=== PATIENT | male | born 1970 ===

== ENCOUNTER 2021-10-01 19:32 | Inpatient (IN) | payer SELFPAY ==
[2021-10-01] MEDS ORDERED: ASPIRIN 325 MG TAB PO ONE (19:39)
[2021-10-01] MEDS ORDERED: MORPHINE 4 MG/1 ML INJ IV ONE (19:58)
[2021-10-01] MEDS ORDERED: ONDANSETRON 4 MG/2 ML INJ IV ONE (19:58)
--- NOTE | 2021-10-01 19:58 | Emergency Department Report ---
ED General Adult HPI - General Chief complaint: Chest Pain Stated complaint: HARMAN Source: patient, certified court/medical interpreter Mode of arrival: Ambulatory Limitations: No Limitations - History of Present Illness Initial comments: The patient's brother acts as an certified court/medical interpreter for this encounter The patient complains of substernal chest pain that started 30 minutes prior to arrival. The patient is diaphoretic and vomiting actively on my evaluation. Patient states the chest pain is located in the middle of his chest and denies any radiation. Patient denies a history of hypertension, diabetes, or hyperlipidemia but the patient does not have a regular primary care physician. -: Sudden, minutes(s) (30) Location: chest Radiation: non-radiation Severity scale (0 -10): 10 Quality: sharp Consistency: constant Improves with: none Worsens with: none Associated Symptoms: denies other symptoms Treatments Prior to Arrival: none - Related Data Allergies Allergy/AdvReac Type Severity Reaction Status Date / Time No Known Allergies Allergy Verified 10/01/21 19:39 ED Review of Systems ROS: Stated complaint: HARMAN Other details as noted in HPI Constitutional: denies: chills, fever Eyes: denies: eye pain, eye discharge, vision change ENT: denies: ear pain, throat pain Respiratory: denies: cough, shortness of breath, wheezing Cardiovascular: chest pain. denies: palpitations Endocrine: no symptoms reported Gastrointestinal: denies: abdominal pain, nausea, diarrhea Genitourinary: denies: urgency, dysuria Musculoskeletal: denies: back pain, joint swelling, arthralgia Skin: denies: rash, lesions Neurological: denies: headache, weakness, paresthesias Psychiatric: denies: anxiety, depression Hematological/Lymphatic: denies: easy bleeding, easy bruising ED Past Medical Hx - Past Medical History Previous Medical History?: No - Surgical History Past Surgical History?: No - Social History Smoking Status: Never Smoker Substance Use Type: None ED Physical Exam - General Limitations: No Limitations General appearance: alert, in distress, other (Diaphoretic and clutching chest) - Head Head exam: Present: atraumatic, normocephalic - Eye Eye exam: Present: normal appearance, PERRL - ENT ENT exam: Present: mucous membranes moist - Neck Neck exam: Present: normal inspection - Respiratory Respiratory exam: Present: normal lung sounds bilaterally. Absent: respiratory distress, wheezes - Cardiovascular Cardiovascular Exam: Present: normal rhythm, tachycardia. Absent: systolic murmur, diastolic murmur, rubs, gallop - GI/Abdominal GI/Abdominal exam: Present: soft, normal bowel sounds. Absent: distended, tenderness - Rectal Rectal exam: Present: deferred - Extremities Exam Extremities exam: Present: normal inspection - Back Exam Back exam: Present: normal inspection - Neurological Exam Neurological exam: Present: alert, oriented X3, CN II-XII intact. Absent: motor sensory deficit - Psychiatric Psychiatric exam: Present: normal affect, normal mood - Skin Skin exam: Present: warm, dry, intact, normal color. Absent: rash ED Course Vital Signs 10/01/21 10/01/21 10/01/21 19:36 20:11 20:15 Temperature 97.4 F L Pulse Rate 103 H 83 94 H Respiratory 18 18 14 Rate Blood Pressure 148/101 Blood Pressure 152/104 [Left] O2 Sat by Pulse 100 Oximetry 10/01/21 20:27 Temperature Pulse Rate Respiratory 21 Rate Blood Pressure Blood Pressure [Left] O2 Sat by Pulse 100 Oximetry ED Medical Decision Making - Lab Data Result diagrams: 10/01/21 20:02 10/01/21 20:02 Lab Results 10/01/21 10/01/21 10/01/21 Range/Units 20:02 20:02 20:02 WBC 14.0 H (4.5-11.0) K/mm3 RBC 5.59 H (3.65-5.03) M/mm3 Hgb 17.0 H (11.8-15.2) gm/dl Hct 50.3 H (35.5-45.6) % MCV 90 (84-94) fl MCH 30 (28-32) pg MCHC 34 (32-34) % RDW 13.5 (13.2-15.2) % Plt Count 280 (140-440) K/mm3 Lymph % (Auto) 21.8 (13.4-35.0) % [place] % (Auto) 5.7 (0.0-7.3) % Eos % (Auto) 1.3 (0.0-4.3) % Baso % (Auto) 0.4 (0.0-1.8) % Lymph # (Auto) 3.1 (1.2-5.4) K/mm3 [place] # (Auto) 0.8 (0.0-0.8) K/mm3 Eos # (Auto) 0.2 (0.0-0.4) K/mm3 Baso # (Auto) 0.1 (0.0-0.1) K/mm3 Seg Neutrophils % 70.8 H (40.0-70.0) % Seg Neutrophils # 9.9 H (1.8-7.7) K/mm3 Sodium 134 L (137-145) mmol/L Potassium 4.0 (3.6-5.0) mmol/L Chloride 93.6 L (98-107) mmol/L Carbon Dioxide 20 L (22-30) mmol/L Anion Gap 24 mmol/L BUN 14 (9-20) mg/dL Creatinine 0.8 (0.8-1.3) mg/dL Estimated GFR > 60 ml/min BUN/Creatinine Ratio 18 % Glucose 392 H (75-100) mg/dL Calcium 10.3 H (8.4-10.2) mg/dL Total Bilirubin 0.40 (0.1-1.2) mg/dL AST 17 (5-40) units/L ALT 26 (7-56) units/L Alkaline Phosphatase 111 (35-129) units/L Troponin T < 0.010 (0.00-0.029) ng/mL NT-Pro-B Natriuret Pep 26.12 (0-900) pg/mL Total Protein 9.3 H (6.3-8.2) g/dL Albumin 5.2 H (3.9-5) g/dL Albumin/Globulin Ratio 1.3 % - EKG Data Interpretation: other (EKG shows sinus rhythm with ST elevation in leads II and III) - Medical Decision Making EKG was handed to me at approximately 1941 At this time went to triage to evaluate the patient while found the patient sitting in the chair clutching his chest and diaphoretic. Patient was complained of 10 out of 10 chest pain EKG was sent to Dr. Godinez at [address] Godinez at that time Code STEMI called overhead Also at 1949 a bed was requested for the patient as well as orders were put in for continuous cardiac monitoring and continuous pulse ox. Pain medication was also ordered for the patient Critical care attestation.: If time is entered above; I have spent that time in minutes in the direct care of this critically ill patient, excluding procedure time. ED Disposition Clinical Impression: STEMI (ST elevation myocardial infarction) Disposition: 09 ADMITTED INPATIENT Is pt being admited?: Yes Does the pt Need Aspirin: Yes Condition: Fair
[2021-10-01] MEDS ORDERED: ASPIRIN 81 MG TAB CHEW PO ONE (20:02)
[2021-10-01] MEDS ORDERED: fentaNYL 100 MCG/2 ML INJ IV ONE (20:26)
--- NOTE | 2021-10-01 20:26 | XRay Report ---
XR chest 1V ap INDICATION / CLINICAL INFORMATION: chest pain COMPARISON: None available. FINDINGS: SUPPORT DEVICES: None. HEART / MEDIASTINUM: No significant abnormality. LUNGS / PLEURA: Lungs are clear. Costophrenic sulci are sharp. No pneumothorax. ADDITIONAL FINDINGS: No significant additional findings. IMPRESSION: 1. No acute findings. Signer Name: Cristhian Bonilla MD Signed: 10/01/2021 8:21 PM Workstation Name: [id number]
[2021-10-01 20:35] LABS: Alanine Aminotransferase 26 units/L (7-56); Albumin 5.2 g/dL (3.9-5); BUN/Creatinine Ratio 18; Blood Urea Nitrogen 14 mg/dL (9-20); Calcium 10.3 mg/dL (8.4-10.2); Hemolysis Index 20
[2021-10-01 20:44] LABS: Basophils # (Auto) 0.1 K/mm3 (0.0-0.1); Basophils % (Auto) 0.4 % (0.0-1.8); Eosinophils # (Auto) 0.2 K/mm3 (0.0-0.4); Eosinophils % (Auto) 1.3 % (0.0-4.3); Hematocrit 50.3 % (35.5-45.6); Lymphocytes # (Auto) 3.1 K/mm3 (1.2-5.4); Lymphocytes % (Auto) 21.8 % (13.4-35.0); Mean Corpuscular HGB Conc 34 % (32-34); Mean Corpuscular Volume 90 fl (84-94); Monocytes # (Auto) 0.8 K/mm3 (0.0-0.8); Monocytes % (Auto) 5.7 % (0.0-7.3); Platelet Count 280 K/mm3 (140-440); Red Blood Count 5.59 M/mm3 (3.65-5.03); Red Cell Distribution Width 13.5 % (13.2-15.2)
[2021-10-01] MEDS ORDERED: HEPARIN/NS 5000 UNIT/500ML 1,000 ML IR ONE (20:45)
[2021-10-01] MEDS ORDERED: LIDOCAINE (2%) 20 MG/1 ML VIAL 50 ML MDV INFILTRATI ONE (20:45)
[2021-10-01] MEDS ORDERED: VERAPAMIL 5 MG/2 ML INJ ONE (20:45)
[2021-10-01] MEDS ORDERED: NITROGLYCERIN SYRINGE 3 ML ONE ×2 (20:45→21:18)
[2021-10-01] MEDS ORDERED: SODIUM CHLORIDE 0.9% 1000 ML 1,000 ML ONE ×2 (20:46→20:47)
[2021-10-01] MEDS: HEPARIN 10,000 UNITS/10 ML VIAL ONE ×2 (20:54→21:01)
[2021-10-01] MEDS ORDERED: fentaNYL 100 MCG/2 ML INJ ONE (20:54)
[2021-10-01] MEDS ORDERED: MIDAZOLAM 2 MG/2 ML INJ ONE (20:54)
[2021-10-01] MEDS ORDERED: HEPARIN/NS 5000 UNIT/500ML 500 ML IR ONE (21:01)
[2021-10-01] MEDS ORDERED: HYDROmorphone 1 MG/1 ML INJ ONE (21:08)
[2021-10-01] MEDS ORDERED: MORPHINE 2 MG/1 ML INJ IV PRN (21:21)
[2021-10-01] MEDS ORDERED: ACETAMINOPHEN 325 MG TAB PO PRN (21:21)
[2021-10-01] MEDS ORDERED: NITROGLYCERIN 0.4 MG TAB SUBL SL PRN (21:21)
[2021-10-01] MEDS ORDERED: traMADol 50 MG TAB PO PRN (21:21)
[2021-10-01] MEDS ORDERED: CLOPIDOGREL 300 MG TAB ONE (21:29)
[2021-10-01] MEDS ORDERED: ALUM-MAG HYDROXIDE-SIMETHICONE 200-200-20MG/5ML ORAL LIQD 30 ML ONE (21:29)
[2021-10-01] MEDS ORDERED: SODIUM CHLORIDE 0.9% 1000 ML 1,000 ML IV SCH (21:30)
--- NOTE | 2021-10-01 21:31 | History and Physical Report ---
History of Present Illness Date of examination: 10/01/21 Date of admission: 10/01/21 Chief complaint: Chest pain History of present illness: 51 years male with unknown past medical history was brought to the hospital because of substernal chest pain that started 30 minutes prior to arrival. The patient is diaphoretic and vomiting actively on my evaluation. Patient states the chest pain is located in the middle of his chest and denies any radiation. Patient denies a history of hypertension, diabetes, or hyperlipidemia but the patient does not have a regular primary care physician. At this time went to triage to evaluate the patient while found the patient sitting in the chair clutching his chest and diaphoretic. Patient was complained of 10 out of 10 chest pain EKG was sent to Dr. Godinez at [address] Godinez at that time Code STEMI called overhead. Patient is taken to the [facility] Past History Past Surgical History: No surgical history Social history: no significant social history Family history: hypertension Medications and Allergies Allergies Allergy/AdvReac Type Severity Reaction Status Date / Time No Known Allergies Allergy Verified 10/01/21 19:39 Active Meds: Active Medications Acetaminophen (Acetaminophen 325 Mg Tab) 650 mg PO Q6H PRN PRN Reason: Pain, Mild (1-3) Atorvastatin Calcium (Atorvastatin 40 Mg Tab) 40 mg PO QHS [facility] Heparin Sodium (Porcine) (Heparin 5,000 Unit/1 Ml Vial) 5,000 unit SUB-Q Q12HR [facility] Sodium Chloride (Nacl 0.9% 1000 Ml) 1,000 mls @ 100 mls/hr IV DIRECT ROL[facility] Morphine Sulfate (Morphine 4 Mg/1 Ml Inj) 2 mg IV Q5MIN PRN PRN Reason: Chest Pain unrelieved by NTG Nitroglycerin (Nitroglycerin 0.4 Mg Tab Subl) 0.4 mg SL Q5M PRN PRN Reason: Chest Pain Pantoprazole Sodium (Pantoprazole 40 Mg Tab) 40 mg PO QDAY [facility] Sodium Chloride (Sodium Chloride 0.9% 10 Ml Flush Syringe) 10 ml IV PRN PRN PRN Reason: LINE FLUSH Tramadol HCl (Tramadol 50 Mg Tab) 50 mg PO Q6H PRN PRN Reason: Pain, Moderate (4-6) Review of Systems All systems: negative Cardiovascular: chest pain, lightheadedness, other (Diaphoresis) Exam - Constitutional Vitals: Temp Pulse Resp BP Pulse Ox 97.4 F L 94 H 21 148/101 100 10/01/21 19:36 10/01/21 20:15 10/01/21 20:27 10/01/21 20:15 10/01/21 20:27 General appearance: Present: no acute distress, well-nourished - EENT Eyes: Present: PERRL ENT: hearing intact, clear oral mucosa - Neck Neck: Present: supple, normal ROM - Respiratory Respiratory effort: normal Respiratory: bilateral: diminished - Cardiovascular Heart Sounds: Present: S1 & S2. Absent: rub, click - Extremities Extremities: pulses symmetrical, No edema Peripheral Pulses: within normal limits - Abdominal General gastrointestinal: Present: soft, non-tender, non-distended, normal bowel sounds Male genitourinary: Present: normal - Integumentary Integumentary: Present: clear, warm, dry - Musculoskeletal Musculoskeletal: gait normal, strength equal bilaterally - Psychiatric Psychiatric: appropriate mood/affect, intact judgment & insight - Neurologic Neurologic: CNII-XII intact, moves all extremities HEART Score - HEART Score Troponin: Troponin T < 0.010 ng/mL (0.00-0.029) 10/01/21 20:02 Results - Labs CBC & Chem 7: 10/01/21 20:02 10/01/21 20:02 Labs: Laboratory Last Values WBC 14.0 K/mm3 (4.5-11.0) H 10/01/21 20:02 RBC 5.59 M/mm3 (3.65-5.03) H 10/01/21 20:02 Hgb 17.0 gm/dl (11.8-15.2) H 10/01/21 20:02 Hct 50.3 % (35.5-45.6) H 10/01/21 20:02 MCV 90 fl (84-94) 10/01/21 20:02 MCH 30 pg (28-32) 10/01/21 20:02 MCHC 34 % (32-34) 10/01/21 20:02 RDW 13.5 % (13.2-15.2) 10/01/21 20:02 Plt Count 280 K/mm3 (140-440) 10/01/21 20:02 Lymph % (Auto) 21.8 % (13.4-35.0) 10/01/21 20:02 [place] % (Auto) 5.7 % (0.0-7.3) 10/01/21 20:02 Eos % (Auto) 1.3 % (0.0-4.3) 10/01/21 20:02 Baso % (Auto) 0.4 % (0.0-1.8) 10/01/21 20:02 Lymph # (Auto) 3.1 K/mm3 (1.2-5.4) 10/01/21 20:02 [place] # (Auto) 0.8 K/mm3 (0.0-0.8) 10/01/21 20:02 Eos # (Auto) 0.2 K/mm3 (0.0-0.4) 10/01/21 20:02 Baso # (Auto) 0.1 K/mm3 (0.0-0.1) 10/01/21 20:02 Seg Neutrophils % 70.8 % (40.0-70.0) H 10/01/21 20:02 Seg Neutrophils # 9.9 K/mm3 (1.8-7.7) H 10/01/21 20:02 Sodium 134 mmol/L (137-145) L 10/01/21 20:02 Potassium 4.0 mmol/L (3.6-5.0) 10/01/21 20:02 Chloride 93.6 mmol/L (98-107) L 10/01/21 20:02 Carbon Dioxide 20 mmol/L (22-30) L 10/01/21 20:02 Anion Gap 24 mmol/L 10/01/21 20:02 BUN 14 mg/dL (9-20) 10/01/21 20:02 Creatinine 0.8 mg/dL (0.8-1.3) 10/01/21 20:02 Estimated GFR > 60 ml/min 10/01/21 20:02 BUN/Creatinine Ratio 18 % 10/01/21 20:02 Glucose 392 mg/dL (75-100) H 10/01/21 20:02 Calcium 10.3 mg/dL (8.4-10.2) H 10/01/21 20:02 Total Bilirubin 0.40 mg/dL (0.1-1.2) 10/01/21 20:02 AST 17 units/L (5-40) 10/01/21 20:02 ALT 26 units/L (7-56) 10/01/21 20:02 Alkaline Phosphatase 111 units/L (35-129) 10/01/21 20:02 Troponin T < 0.010 ng/mL (0.00-0.029) 10/01/21 20:02 NT-Pro-B Natriuret Pep 26.12 pg/mL (0-900) 10/01/21 20:02 Total Protein 9.3 g/dL (6.3-8.2) H 10/01/21 20:02 Albumin 5.2 g/dL (3.9-5) H 10/01/21 20:02 Albumin/Globulin Ratio 1.3 % 10/01/21 20:02 - Imaging and Cardiology Chest x-ray: report reviewed Assessment and Plan VTE prophylaxis?: Chemical Plan of care discussed with patient/family: Yes - Patient Problems (1) STEMI (ST elevation myocardial infarction) Status: Acute Plan to address problem: Admit the patient to the ICU. Aspirin 325 mg p.o. x1 dose Lipitor 40 mg p.o. daily. Nitroglycerin as needed. We will do the serial cardiac enzyme. Patient is taken to the [facility]. Interventional cardiology evaluation. Critical care consulted (2) Hypertension Status: Acute Plan to address problem: Hydralazine 10 mg IV every 6 hours as needed. We will continue the home medication. Cardiology evaluation (3) DVT prophylaxis Status: Acute Plan to address problem: Heparin drip as per protocol DVT prophylaxis. Protonix 40 mg p.o. daily for GI prophylaxis. Patient is a full code
[2021-10-01] MEDS ORDERED: HYDROcodone/ACETAMINOPHEN 5-325 MG TAB PO PRN (21:46)
--- NOTE | 2021-10-01 21:54 | Consultation ---
History of Present Illness Consult date: 10/01/21 Consult reason: chest pain, other (Acute STEMI) History of present illness: Patient is a 51-year-old man, history of tobacco abuse, who presented to the hospital with severe chest pain. EKG in the emergency room was consistent with an acute anterolateral wall ST elevation myocardial infarction. Cardiology was consulted and we activated the emergency cath protocol. At cardiac catheterization, we found complete occlusion of the LAD in its proximal segment. Primary angioplasty was successful, JAIME-3 flow was reestablished and there was an excellent angiographic result after deployment of serial 3.5 mm drug-eluting stents. Procedure was well-tolerated by the patient and there are no complications. His chest pain resolved immediately post procedure. Past History Past Medical History: hypertension Past Surgical History: No surgical history Social history: no significant social history Family history: hypertension Medications and Allergies Allergies Allergy/AdvReac Type Severity Reaction Status Date / Time No Known Allergies Allergy Verified 10/01/21 19:39 Active Meds: Active Medications Acetaminophen (Acetaminophen 325 Mg Tab) 650 mg PO Q6H PRN PRN Reason: Pain, Mild (1-3) Hydrocodone Bitart/Acetaminophen (Hydrocodone/Acetaminophen 5-325 Mg Tab) 1 each PO Q6H PRN PRN Reason: Pain, Moderate (4-6) Aspirin (Aspirin Ec 325 Mg Tab) 325 mg PO QDAY [facility] Atorvastatin Calcium (Atorvastatin 40 Mg Tab) 40 mg PO QHS [facility] Clopidogrel Bisulfate (Clopidogrel 75 Mg Tab) 75 mg PO QDAY [facility] Heparin Sodium (Porcine) (Heparin 5,000 Unit/1 Ml Vial) 5,000 unit SUB-Q Q12HR [facility] Sodium Chloride (Nacl 0.9% 1000 Ml) 1,000 mls @ 100 mls/hr IV DIRECT [facility]OL[facility] Stop: 10/02/21 09:29 Isosorbide Mononitrate (Isosorbide Mononitrate Er 30 Mg Tab) 30 mg PO QDAY [facility] Lisinopril (Lisinopril 5 Mg Tab) 5 mg PO QDAY [facility] Metoprolol Tartrate (Metoprolol Tartrate 50 Mg Tab) 50 mg PO BID [facility] Morphine Sulfate (Morphine 2 Mg/1 Ml Inj) 2 mg IV Q5MIN PRN PRN Reason: Chest Pain unrelieved by NTG Nitroglycerin (Nitroglycerin 0.4 Mg Tab Subl) 0.4 mg SL Q5M PRN PRN Reason: Chest Pain Pantoprazole Sodium (Pantoprazole 40 Mg Tab) 40 mg PO QDAY [facility] Sodium Chloride (Sodium Chloride 0.9% 10 Ml Flush Syringe) 10 ml IV PRN PRN PRN Reason: LINE FLUSH Tramadol HCl (Tramadol 50 Mg Tab) 50 mg PO Q6H PRN PRN Reason: Pain, Moderate (4-6) Review of Systems Cardiovascular: chest pain, shortness of breath, no orthopnea, no palpitations, no rapid/irregular heart beat, no edema, no syncope, no lightheadedness Physical Examination Vital Signs Temp Pulse Resp BP Pulse Ox 97.4 F L 103 H 18 152/104 100 10/01/21 19:36 10/01/21 19:36 10/01/21 19:36 10/01/21 19:36 10/01/21 19:36 General appearance: no acute distress HEENT: Positive: PERRL Neck: Positive: neck supple Cardiac: Positive: Reg Rate and Rhythm Lungs: Positive: Decreased Breath Sounds Neuro: Positive: Grossly Intact Abdomen: Positive: Soft Male genitourinary: Positive: deferred Skin: Positive: Clear Extremities: Absent: edema Results 10/01/21 20:02 10/01/21 20:02 Cardiac Enzymes 10/01/21 Range/Units 20:02 AST 17 (5-40) units/L CBC 10/01/21 Range/Units 20:02 WBC 14.0 H (4.5-11.0) K/mm3 RBC 5.59 H (3.65-5.03) M/mm3 Hgb 17.0 H (11.8-15.2) gm/dl Hct 50.3 H (35.5-45.6) % Plt Count 280 (140-440) K/mm3 Lymph # (Auto) 3.1 (1.2-5.4) K/mm3 [place] # (Auto) 0.8 (0.0-0.8) K/mm3 Eos # (Auto) 0.2 (0.0-0.4) K/mm3 Baso # (Auto) 0.1 (0.0-0.1) K/mm3 Comprehensive Metabolic Panel 10/01/21 Range/Units 20:02 Sodium 134 L (137-145) mmol/L Potassium 4.0 (3.6-5.0) mmol/L Chloride 93.6 L (98-107) mmol/L Carbon Dioxide 20 L (22-30) mmol/L BUN 14 (9-20) mg/dL Creatinine 0.8 (0.8-1.3) mg/dL Glucose 392 H (75-100) mg/dL Calcium 10.3 H (8.4-10.2) mg/dL AST 17 (5-40) units/L ALT 26 (7-56) units/L Alkaline Phosphatase 111 (35-129) units/L Total Protein 9.3 H (6.3-8.2) g/dL Albumin 5.2 H (3.9-5) g/dL EKG interpretations - Telemetry EKG Rhythm: Sinus Rhythm (With acute anterolateral wall ST elevation myocardial infarction) Assessment and Plan - Patient Problems (1) STEMI (ST elevation myocardial infarction) Status: Acute Plan to address problem: Emergency cardiac catheterization followed by successful primary angioplasty and stenting of 100% occlusion of the proximal LAD. Excellent post procedure result, temple of JAIME-3 flow. Admit for post [place] supportive management, guideline directed medical therapy including dual oral antiplatelet therapy with aspirin and Plavix, echocardiogram for left ventricular function and valvular function assessment. Patient will be counseled to stop smoking.
[2021-10-01 22:04] LABS: Blood Urea Nitrogen 14 mg/dL (9-20); Calcium 10.4 mg/dL (8.4-10.2); Hemolysis Index 43
[2021-10-01 22:14] LABS: BUN/Creatinine Ratio 20
[2021-10-01] MEDS: LISINOPRIL 5 MG TAB PO SCH (23:13)
[2021-10-01] MEDS: HEPARIN 5,000 UNIT/1 ML VIAL SUB-Q SCH (23:14)
[2021-10-01] MEDS: METOPROLOL TARTRATE 50 MG TAB PO SCH (23:14)
--- NOTE | 2021-10-01 23:19 | Cardiac Catherization Report ---
DATE OF SERVICE: 10/01/2021 CARDIAC CATHETERIZATION AND CORONARY ANGIOPLASTY REPORT REASON FOR PROCEDURE: The patient is a 51-year-old man who presented to the hospital with chest pain and EKG was consistent with an acute anterolateral wall ST elevation myocardial infarction. Emergency cardiac catheterization protocol was activated. PROCEDURES: 1. Left heart catheterization. 2. Selective left and right coronary angiography. 3. Coronary angioplasty and stenting of the left anterior descending artery. 4. Sedation time, start 2055, end 2126. DESCRIPTION OF PROCEDURE: The patient was prepped and draped in a sterile fashion under emergency protocol. The right radial artery was entered using Seldinger technique followed by placement of a 6-Welsh hydrophilic sheath. Routine radial cocktail was administered via the sheath. Selective left and right coronary angiography was performed. We performed right coronary angiography using a #4 right Rick diagnostic catheter. Angiography of the left coronary artery was performed using a #3.0 XB guiding catheter. The angiograms were reviewed. Left main coronary artery contained mild distal narrowing. The left anterior descending artery was completely occluded in its proximal segment, just after its ostium. A large ramus intermedius artery contained diffuse mild atherosclerosis. The mid obtuse marginal branch of the circumflex artery was a medium sized vessel that contained a 50% stenosis of its mid segment. The right coronary artery was dominant. This vessel contained a 20-30% stenosis in its proximal to mid segment. CORONARY ANGIOPLASTY: We proceeded with primary angioplasty of the proximal LAD, which was the infarct vessel. We selected a Manager Paid 50 guidewire and introduced into the LAD. Following wire placement in the vessel, we used a 3.0 mm balloon catheter and dilated the proximal LAD, reestablishing flow. This revealed a large LAD system that in addition to the proximal occlusion also contained a 75-80% secondary stenosis in its mid segment. Following predilatation angioplasty, we proceeded with coronary stenting. A 3.5 x 8 mm drug-eluting stent was implanted into the mid segment lesion, and inflated to optimal pressures. Following optimal treatment of the mid stenosis, we then deployed another, 3.5 x 12 mm drug-eluting stent across the primary proximal lesion. The proximal stent was extended to the ostium of the LAD. We then performed post-dilatation balloon angioplasty within the proximal stent using a 3.5 x 8 mm noncompliant balloon. Following angioplasty and stenting, post-intervention angiograms revealed an excellent angiographic result, zero residual stenosis and holiness of JAIME 3 flow down the LAD and branches. The procedure was well tolerated by the patient and there were no complications. The catheters and the wires were removed, sheath removed and hemostasis achieved using a TR band. The patient was returned to the postprocedure unit in stable condition. CONCLUSION: 1. The patient presented with an acute anterolateral wall myocardial infarction. 2. Complete occlusion of the LAD in its proximal segment was the infarct lesion. 3. Successful primary angioplasty and stenting of the LAD with deployment of a 3.5 x 12 mm drug-eluting stent in the proximal segment, and another 3.5 x 8 mm stent in the mid vessel. RECOMMENDATIONS: The patient will be admitted for post-intervention supportive care, guideline directed medical therapy including dual oral antiplatelet therapy will be initiated, echocardiogram will be done for left ventricular function and valvular function assessment. TID: [id number] RECEIPT: [id number] JOSE/VENKAT
[2021-10-02 02:45] LABS: Chol/HDL Ratio 5.51 %
[2021-10-02 04:58] LABS: Basophils % (Auto) 0.4 % (0.0-1.8); Eosinophils % (Auto) 0.4 % (0.0-4.3); Hematocrit 42.7 % (35.5-45.6); Hemoglobin 14.6 gm/dl (11.8-15.2); Lymphocytes # (Auto) 2.1 K/mm3 (1.2-5.4); Lymphocytes % (Auto) 16.8 % (13.4-35.0); Mean Corpuscular HGB Conc 34 % (32-34); Mean Corpuscular Volume 89 fl (84-94); Monocytes % (Auto) 8.2 % (0.0-7.3); Platelet Count 237 K/mm3 (140-440); Red Blood Count 4.79 M/mm3 (3.65-5.03); Red Cell Distribution Width 13.3 % (13.2-15.2)
[2021-10-02 05:12] LABS: Blood Urea Nitrogen 12 mg/dL (9-20); Calcium 8.9 mg/dL (8.4-10.2); Hemolysis Index 2
[2021-10-02 05:21] LABS: BUN/Creatinine Ratio 24
--- NOTE | 2021-10-02 09:07 | Electrocardiograph Report ---
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
--- NOTE | 2021-10-02 09:08 | Electrocardiograph Report ---
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
[2021-10-02] MEDS: METOPROLOL TARTRATE 50 MG TAB PO SCH (09:22)
[2021-10-02] MEDS ORDERED: PANTOPRAZOLE 40 MG TAB PO SCH (10:00)
--- NOTE | 2021-10-02 10:06 | XRay Report ---
CHEST 1 VIEW 10/02/2021 9:01 AM INDICATION / CLINICAL INFORMATION: post pci. COMPARISON: Yesterday FINDINGS: SUPPORT DEVICES: None. HEART / MEDIASTINUM: No significant abnormality. LUNGS / PLEURA: No significant pulmonary or pleural abnormality. No pneumothorax. ADDITIONAL FINDINGS: No significant additional findings. IMPRESSION: 1. No acute findings. Signer Name: Raul Ruiz Jr, MD Signed: 10/02/2021 10:02 AM Workstation Name: [id number]
--- NOTE | 2021-10-02 10:41 | Progress Note ---
Assessment and Plan - Patient Problems (1) STEMI (ST elevation myocardial infarction) Current Visit: No Status: Inactive Plan to address problem: Status postacute anterior wall ST elevation myocardial infarction, treated with primary angioplasty and stenting of the LAD. Echocardiogram is pending for left ventricular function and valvular function assessment. Patient is stable for transfer to telemetry, anticipate discharge tomorrow on optimal medical therapy. Subjective Date of service: 10/02/21 Principal diagnosis: ST elevation myocardial infarction Interval history: Patient is comfortable in no acute distress, no further chest pain. No shortness of breath. Stable sinus rhythm on the monitor, with systolic blood pressure of 100. Objective Vital Signs Temp Pulse Pulse Resp BP BP Pulse Ox 10/02/21 09:22 76 96/65 10/02/21 04:00 99 H 15 100 10/01/21 23:59 99 H 15 100 10/01/21 23:14 100 H 122/93 10/01/21 23:13 100 H 122/93 10/01/21 23:12 100 H 122/93 10/01/21 20:40 97 H 17 149/108 100 10/01/21 20:31 99 H 16 149/108 100 10/01/21 20:27 21 100 10/01/21 20:25 98 H 20 149/108 10/01/21 20:15 94 H 14 148/101 10/01/21 20:11 83 18 10/01/21 19:36 97.4 F L 103 H 18 152/104 100 - Physical Examination General: No Apparent Distress HEENT: Positive: PERRL Neck: Positive: neck supple Cardiac: Positive: Reg Rate and Rhythm Lungs: Positive: Decreased Breath Sounds Neuro: Positive: Grossly Intact Abdomen: Positive: Soft Skin: Positive: Clear Extremities: Absent: edema - Labs and Meds Cardiac Enzymes 10/01/21 Range/Units 20:02 AST 17 (5-40) units/L Lipids 10/02/21 Range/Units 01:41 Triglycerides 190 H (2-149) mg/dL Cholesterol 237 H (50-199) mg/dL HDL Cholesterol 43 (40-59) mg/dL Cholesterol/HDL Ratio 5.51 % CBC 10/01/21 10/02/21 Range/Units 20:02 04:09 WBC 14.0 H 12.4 H (4.5-11.0) K/mm3 RBC 5.59 H 4.79 (3.65-5.03) M/mm3 Hgb 17.0 H 14.6 (11.8-15.2) gm/dl Hct 50.3 H 42.7 D (35.5-45.6) % Plt Count 280 237 (140-440) K/mm3 Lymph # (Auto) 3.1 2.1 (1.2-5.4) K/mm3 [place] # (Auto) 0.8 1.0 H (0.0-0.8) K/mm3 Eos # (Auto) 0.2 0.0 (0.0-0.4) K/mm3 Baso # (Auto) 0.1 0.0 (0.0-0.1) K/mm3 Comprehensive Metabolic Panel 10/01/21 10/01/21 10/02/21 Range/Units 20:02 21:35 04:09 Sodium 134 L 136 L 134 L (137-145) mmol/L Potassium 4.0 4.0 4.3 (3.6-5.0) mmol/L Chloride 93.6 L 92.5 L 96.8 L (98-107) mmol/L Carbon Dioxide 20 L 20 L 22 (22-30) mmol/L BUN 14 14 12 (9-20) mg/dL Creatinine 0.8 0.7 L 0.5 L (0.8-1.3) mg/dL Glucose 392 H 379 H 315 H (75-100) mg/dL Calcium 10.3 H 10.4 H 8.9 (8.4-10.2) mg/dL AST 17 (5-40) units/L ALT 26 (7-56) units/L Alkaline Phosphatase 111 (35-129) units/L Total Protein 9.3 H (6.3-8.2) g/dL Albumin 5.2 H (3.9-5) g/dL
[2021-10-02] MEDS: CLOPIDOGREL 75 MG TAB PO SCH (10:51)
[2021-10-02] MEDS: ASPIRIN EC 325 MG TAB PO SCH (10:52)
[2021-10-02] MEDS: HEPARIN 5,000 UNIT/1 ML VIAL SUB-Q SCH ×2 (10:52→22:43)
[2021-10-02] MEDS: NICOTINE 14 MG/24 HR PATCH TD SCH (10:53)
[2021-10-02] MEDS ORDERED: DEXTROSE 50% IN WATER (25GM) 50 ML SYRINGE IV PRN (11:47)
--- NOTE | 2021-10-02 14:53 | Progress Note ---
Assessment and Plan Assessment and plan: This is a 51-year-old male admitted with STEMI s/p angioplasty and stent placement to LAD Neuro: NAD -Reorientation as needed -Maintain sleep-wake cycle -As needed analgesia Cardiac: STEMI s/p PCI and stent placement to LAD -Cardiology consulted, appreciate recommendations -s/p PCI and stent placement to LAD on 10/01 -Aspirin, Lipitor, Plavix, Imdur, lisinopril, metoprolol -Nitroglycerin and morphine as needed for chest pain -As needed tramadol -Blood pressure monitoring per protocol -Echocardiogram pending -lipid panel noted Respiratory: Active nicotine abuse -Nicotine patch -Supplemental oxygen as needed -SPO2 monitoring -Smoking cessation counseling provided GI: Overweight -BMI 29.7 -PPI -CC cardiac diet -BR: Colace -Lifestyle and dietary modifications outpatient strongly encouraged : Pseudohyponatremia -Sodium 134, corrected sodium 140 -Monitor intake and output -Renally dose medications -Avoid nephrotoxic medications -Trend BMP ID: NAD -Monitor WBC and temperature curve Endo: DM -Hbg A1C 12 -Avoid hypoglycemia -SSI -Accu-Cheks ACHS Heme: Leukocytosis -Trend CBC -Transfuse hemoglobin less than 7 -SCDs to BLE while in bed The high probability of a clinically significant, sudden or life threatening deterioration of the [cardio] system(s) required my full and direct attention, intervention and personal management. The aggregate critical care time was [60] minutes. This time is in addition to time spent performing reported procedures but includes the following: [x] Data Review and interpretation [x] Patient assessment and monitoring of vital signs [x] Documentation [x] Medication orders and management Disposition Plan: transfer to tele Total Time Spent with Patient (Minutes): 60 History Interval history: This is a 51 year old male with no past medical history who presented to emergency department on 10/01 due to substernal chest pain which was said to be 10/10 which started 30 minutes prior to arrival, diaphoresis, nausea and vomiting and in triage patient was noted to be sitting in chair clutching his chest and was diaphoretic. ECG was obtained in the emergency department which was consistent with acute anterior lateral wall ST elevation [place] and sent to Dr. Godinez and code STEMI was called and the patient was taken to [facility]. During cardiac catheterization was noted the patient had 100% LAD occlusion in the proximal segment and he received angioplasty and stent placement. Patient was admitted to the hospital service with consults to cardiology and CCM in the ICU for observation. Hospital course to date: 10/02: Patient has been cleared by cardiology to be transitioned to the floor, echocardiogram pending. Hemoglobin A1c obtained due to hypoglycemia on a.m. labsresulted at 12. Patient has been placed on SSI and cardiac CC diet. Hospitalist Physical - Constitutional Vitals: Temp Pulse Resp BP Pulse Ox 97.4 F L 80 15 100/71 99 10/01/21 19:36 10/02/21 10:51 10/02/21 04:00 10/02/21 10:51 10/02/21 12:00 General appearance: Present: no acute distress - EENT Eyes: Present: PERRL, EOM intact ENT: clear oral mucosa - Neck Neck: Present: normal ROM - Respiratory Respiratory effort: normal Respiratory: bilateral: CTA - Cardiovascular Rhythm: regular Heart Sounds: Present: S1 & S2. Absent: systolic murmur, diastolic murmur - Extremities Extremities: no ischemia, pulses intact, pulses symmetrical Peripheral Pulses: within normal limits - Abdominal General gastrointestinal: soft, non-tender, non-distended, normal bowel sounds - Integumentary Integumentary: Present: clear, warm, dry - Psychiatric Psychiatric: appropriate mood/affect, cooperative - Neurologic Neurologic: CNII-XII intact, no focal deficits, moves all extremities - Allied Health Allied health notes reviewed: nursing, RT, social work HEART Score - HEART Score Troponin: Troponin T 12.050 ng/mL (0.00-0.029) H* 10/02/21 04:09 Results - Labs CBC & Chem 7: 10/02/21 04:09 10/02/21 04:09 Labs: Laboratory Last Values WBC 12.4 K/mm3 (4.5-11.0) H 10/02/21 04:09 RBC 4.79 M/mm3 (3.65-5.03) 10/02/21 04:09 Hgb 14.6 gm/dl (11.8-15.2) 10/02/21 04:09 Hct 42.7 % (35.5-45.6) D 10/02/21 04:09 MCV 89 fl (84-94) 10/02/21 04:09 MCH 31 pg (28-32) 10/02/21 04:09 MCHC 34 % (32-34) 10/02/21 04:09 RDW 13.3 % (13.2-15.2) 10/02/21 04:09 Plt Count 237 K/mm3 (140-440) 10/02/21 04:09 Lymph % (Auto) 16.8 % (13.4-35.0) 10/02/21 04:09 [place] % (Auto) 8.2 % (0.0-7.3) H 10/02/21 04:09 Eos % (Auto) 0.4 % (0.0-4.3) 10/02/21 04:09 Baso % (Auto) 0.4 % (0.0-1.8) 10/02/21 04:09 Lymph # (Auto) 2.1 K/mm3 (1.2-5.4) 10/02/21 04:09 [place] # (Auto) 1.0 K/mm3 (0.0-0.8) H 10/02/21 04:09 Eos # (Auto) 0.0 K/mm3 (0.0-0.4) 10/02/21 04:09 Baso # (Auto) 0.0 K/mm3 (0.0-0.1) 10/02/21 04:09 Seg Neutrophils % 74.2 % (40.0-70.0) H 10/02/21 04:09 Seg Neutrophils # 9.2 K/mm3 (1.8-7.7) H 10/02/21 04:09 Sodium 134 mmol/L (137-145) L 10/02/21 04:09 Potassium 4.3 mmol/L (3.6-5.0) 10/02/21 04:09 Chloride 96.8 mmol/L (98-107) L 10/02/21 04:09 Carbon Dioxide 22 mmol/L (22-30) 10/02/21 04:09 Anion Gap 20 mmol/L 10/02/21 04:09 BUN 12 mg/dL (9-20) 10/02/21 04:09 Creatinine 0.5 mg/dL (0.8-1.3) L 10/02/21 04:09 Estimated GFR > 60 ml/min 10/02/21 04:09 BUN/Creatinine Ratio 24 % 10/02/21 04:09 Glucose 315 mg/dL (75-100) H 10/02/21 04:09 Hemoglobin A1c 12.0 % (4-6) H 10/02/21 10:39 Calcium 8.9 mg/dL (8.4-10.2) 10/02/21 04:09 Total Bilirubin 0.40 mg/dL (0.1-1.2) 10/01/21 20:02 AST 17 units/L (5-40) 10/01/21 20:02 ALT 26 units/L (7-56) 10/01/21 20:02 Alkaline Phosphatase 111 units/L (35-129) 10/01/21 20:02 Troponin T 12.050 ng/mL (0.00-0.029) H* 10/02/21 04:09 NT-Pro-B Natriuret Pep 26.12 pg/mL (0-900) 10/01/21 20:02 Total Protein 9.3 g/dL (6.3-8.2) H 10/01/21 20:02 Albumin 5.2 g/dL (3.9-5) H 10/01/21 20:02 Albumin/Globulin Ratio 1.3 % 10/01/21 20:02 Triglycerides 190 mg/dL (2-149) H 10/02/21 01:41 Cholesterol 237 mg/dL (50-199) H 10/02/21 01:41 LDL Cholesterol Direct 178 mg/dL (50-130) H 10/02/21 01:41 HDL Cholesterol 43 mg/dL (40-59) 10/02/21 01:41 Cholesterol/HDL Ratio 5.51 % 10/02/21 01:41 Active Medications - Current Medications Current Medications: Generic Name Dose Route Start Last Admin Trade Name Freq PRN Reason Stop Dose Admin Acetaminophen 650 mg 10/01/21 21:21 Acetaminophen 325 Mg Tab PO Q6H PRN Pain, Mild (1-3) Hydrocodone Bitart/Acetaminophen 1 each 10/01/21 21:46 Hydrocodone/Acetaminophen 5-325 Mg Tab PO Q6H PRN Pain, Moderate (4-6) Aspirin 325 mg 10/02/21 10:00 10/02/21 10:52 Aspirin Ec 325 Mg Tab PO 325 mg QDAY ROLAND Administration Atorvastatin Calcium 40 mg 10/01/21 22:00 10/01/21 23:12 Atorvastatin 40 Mg Tab PO 40 mg QHS ROLAND Administration Clopidogrel Bisulfate 75 mg 10/02/21 10:00 10/02/21 10:51 Clopidogrel 75 Mg Tab PO 75 mg QDAY [facility] Administration Dextrose 50 ml 10/02/21 11:47 Dextrose 50% In Water (25gm) 50 Ml Syringe IV Q30MIN PRN Hypoglycemia Protocol Docusate Sodium 100 mg 10/02/21 22:00 Docusate Sodium 100 Mg Cap PO BID [facility] Heparin Sodium (Porcine) 5,000 unit 10/01/21 22:00 10/02/21 10:52 Heparin 5,000 Unit/1 Ml Vial SUB-Q 5,000 unit Q12HR [facility] Administration Insulin Human Lispro 0 unit 10/02/21 16:30 Insulin Lispro 100 Unit/Ml SUB-Q ACHS [facility] Protocol Isosorbide Mononitrate 30 mg 10/01/21 22:00 10/02/21 10:51 Isosorbide Mononitrate Er 30 Mg Tab PO 30 mg QDAY [facility] Administration Lisinopril 2.5 mg 10/03/21 10:00 Lisinopril 5 Mg Tab PO QDAY [facility] Metoprolol Tartrate 25 mg 10/02/21 18:00 Metoprolol Tartrate 25 Mg Tab PO Q6HR [facility] Morphine Sulfate 2 mg 10/01/21 21:21 10/02/21 01:10 Morphine 2 Mg/1 Ml Inj IV 2 mg Q5MIN PRN Administration Chest Pain unrelieved by NTG Nicotine 14 mg 10/02/21 11:00 10/02/21 10:53 Nicotine 14 Mg/24 Hr Patch TD 14 mg QDAY [facility] Administration Nitroglycerin 0.4 mg 10/01/21 21:21 Nitroglycerin 0.4 Mg Tab Subl SL Q5M PRN Chest Pain Sodium Chloride 10 ml 10/01/21 21:21 Sodium Chloride 0.9% 10 Ml Flush Syringe IV PRN PRN LINE FLUSH Tramadol HCl 50 mg 10/01/21 21:21 Tramadol 50 Mg Tab PO Q6H PRN Pain, Moderate (4-6)
[2021-10-02] MEDS: DOCUSATE SODIUM 100 MG CAP PO SCH (22:43)
[2021-10-02] MEDS: INSULIN LISPRO 100 UNIT/ML SUB-Q SCH (22:45)
[2021-10-02] MEDS: METOPROLOL TARTRATE 25 MG TAB PO SCH (23:00)
[2021-10-03] MEDS: INSULIN LISPRO 100 UNIT/ML SUB-Q SCH ×3 (00:33→13:03)
[2021-10-03] MEDS: METOPROLOL TARTRATE 25 MG TAB PO SCH ×4 (00:33→12:18)
[2021-10-03] MEDS: LISINOPRIL 5 MG TAB PO SCH (00:33)
[2021-10-03 05:14] LABS: Hematocrit 40.1 % (35.5-45.6); Hemoglobin 13.4 gm/dl (11.8-15.2); Mean Corpuscular HGB Conc 33 % (32-34); Mean Corpuscular Volume 91 fl (84-94); Platelet Count 219 K/mm3 (140-440); Red Blood Count 4.44 M/mm3 (3.65-5.03); Red Cell Distribution Width 13.4 % (13.2-15.2)
[2021-10-03 05:35] LABS: Blood Urea Nitrogen 12 mg/dL (9-20); Calcium 8.5 mg/dL (8.4-10.2); Hemolysis Index 3
[2021-10-03 05:37] LABS: BUN/Creatinine Ratio 20
[2021-10-03] MEDS ORDERED: INSULIN GLARGINE 100 UNITS/ML SUB-Q NR (09:00)
--- NOTE | 2021-10-03 09:42 | Discharge Summary ---
Providers - Providers Date of Admission: 10/01/21 21:21 Date of discharge: 10/03/21 Attending physician: TRI JIN MD 10/01/21 Consult to Cardiac Rehabilitation [CONS] Routine Reason For Exam: Phase I Consult to Cardiac Rehabilitation [CONS] Routine Reason For Exam: post pci 10/01/21 21:21 Consult to Cardiology [CONS] Routine Consulting Provider: MARYAM DELA CRUZ Reason For Exam: stemi Primary care physician: [facility] Hospitalization Reason for admission: chest pain Condition: Fair Hospital course: Interval history: This is a 51 year old male with no past medical history who presented to emergency department on 10/01 due to substernal chest pain which was said to be 10/10 which started 30 minutes prior to arrival, diaphoresis, nausea and vomiting and in triage patient was noted to be sitting in chair clutching his chest and was diaphoretic. ECG was obtained in the emergency department which was consistent with acute anterior lateral wall ST elevation [place] and sent to Dr. Dela Cruz and code STEMI was called and the patient was taken to [facility]. During cardiac catheterization was noted the patient had 100% LAD occlusion in the proximal segment and he received angioplasty and stent placement. Patient was admitted to the hospital service with consults to cardiology and CCM in the ICU for observation. Hospital course to date: 10/02: Patient has been cleared by cardiology to be transitioned to the floor, echocardiogram pending. Hemoglobin A1c obtained due to hypoglycemia on a.m. labsresulted at 12. Patient has been placed on SSI and cardiac CC diet. Hospital course Patient was admitted for acute anterior lateral ST elevation myocardial infarction. PCI with stent placement to LAD by Dr. Dela Cruz. Patient recovering uneventfully post procedure. Patient be discharged home with prescriptions for aspirin, Lipitor, Plavix, Imdur, lisinopril, metoprolol. Hemoglobin A1c noted to be 12. He will be discharged home with prescriptions for insulin and Lantus as well as diabetic supplies. All medications transmitted to the [facility] pharmacy. He was advised to make lifestyle modifications with healthy cardiac diet and avoidance of nicotine products. He was advised to follow-up outpatient with cardiology and primary care. Neuro: NAD -Reorientation as needed -Maintain sleep-wake cycle -As needed analgesia Cardiac: STEMI s/p PCI and stent placement to LAD -Cardiology consulted, appreciate recommendations -s/p PCI and stent placement to LAD on 10/01 -Aspirin, Lipitor, Plavix, Imdur, lisinopril, metoprolol -Nitroglycerin and morphine as needed for chest pain -As needed tramadol -Blood pressure monitoring per protocol -Echocardiogram pending -lipid panel noted Respiratory: Active nicotine abuse -Nicotine patch -Supplemental oxygen as needed -SPO2 monitoring -Smoking cessation counseling provided GI: Overweight -BMI 29.7 -PPI -CC cardiac diet -BR: Colace -Lifestyle and dietary modifications outpatient strongly encouraged : Pseudohyponatremia -Sodium 134, corrected sodium 140 -Monitor intake and output -Renally dose medications -Avoid nephrotoxic medications -Trend BMP ID: NAD -Monitor WBC and temperature curve Endo: DM -Hbg A1C 12 -Avoid hypoglycemia -SSI -Accu-Cheks ACHS Heme: Leukocytosis -Trend CBC -Transfuse hemoglobin less than 7 -SCDs to BLE while in bed Disposition: HOME / SELF CARE / HOMELESS Final Discharge Diagnosis (Prints w/discharge instructions): STEMI Time spent for discharge: 35 Core Measure Documentation - Palliative Care Palliative Care/ Comfort Measures: Not Applicable - Core Measures Any of the following diagnoses?: acute WI - Acute WI Discharge Requirements Aspirin at discharge: Yes TRINI/ARB for LVSD if EF <40%: Yes Beta andreas at discharge: Yes Statin for LDL = or >100 mg/dl on DC: Yes Exam - Physical Exam Narrative exam: Physical Exam: VITAL SIGNS: Reviewed. GENERAL: The patient appears normally developed, Vital signs as documented. HEAD: No signs of head trauma. EYES: Pupils are equal. Extraocular motions intact. EARS: Hearing grossly intact. MOUTH: Oropharynx is normal. NECK: No adenopathy, no JVD. CHEST: Chest with clear breath sounds bilaterally. No wheezes, rales, or rhonchi. CARDIAC: Regular rate and rhythm. S1 and S2, without murmurs, gallops, or rubs. VASCULAR: No Edema. Peripheral pulses normal and equal in all extremities. ABDOMEN: Soft, non tender and non distended. No rebound or guarding, and no masses palpated. Bowel Sounds normal. MUSCULOSKELETAL: Good range of motion of all major joints. Extremities without clubbing, cyanosis or edema. NEUROLOGIC EXAM: Alert and oriented x 4. no focal sensory or strength deficits. PSYCHIATRIC: Mood normal. SKIN: detail exam as documented in skin assessment - Constitutional Vitals: Temp Pulse Resp BP Pulse Ox 98.6 F 92 H 18 102/61 100 10/03/21 05:59 10/03/21 05:59 10/03/21 05:59 10/03/21 05:59 10/03/21 08:32 Plan Follow up with: L[facility] MD [Primary Care Provider] - 7 Days MARYAM DELA CRUZ MD [Staff Physician] - 7 Days Prescriptions: AtorvaSTATin [Lipitor] 40 mg PO QHS 30 Days #30 tablet Aspirin EC [Ecotrin] 325 mg PO QDAY 30 Days #30 tablet ISOSORBIDE MONOnitrate [Imdur ER] 30 mg PO QDAY 30 Days #30 tablet Metoprolol [Lopressor TAB] 25 mg PO Q12H 30 Days #60 tablet Metformin HCl [metFORMIN] 1,000 mg PO BID 30 Days #60 tab Clopidogrel [Plavix] 75 mg PO QDAY 30 Days #30 tablet lisinopriL [Zestril TAB] 2.5 mg PO QDAY 30 Days #30 tablet Other Discharge Orders: Glucometer (Amb) Location: None Selected Glucometer supplies[Amb] Location: None Selected
[2021-10-03] MEDS ORDERED: LISINOPRIL 5 MG TAB PO SCH (10:00)
--- NOTE | 2021-10-03 10:20 | Electrocardiograph Report ---
[facility] Test Date: 2021-10-02 Test Time: 10:46:12 Pat Name: NAS VELASCO Department: Room: A473 Gender: M [employer]: SHANAE : 1970 Requested By: AGNES AMADOR Order Number: [id number] Reading MD: Christo Metz Measurements Intervals [place] Rate: 80 P: 13 TN: 171 QRS: 41 QRSD: 91 T: 88 QT: 408 QTc: 472 Interpretive Statements Sinus rhythm Anteroseptal infarct, age indeterminate Compared to ECG 10/02/2021 07:46:18 No significant changes Electronically Signed On 10-03-2021 10:20:21 EDT by Christo Metz
[2021-10-03] MEDS: ASPIRIN EC 325 MG TAB PO SCH (10:33)
[2021-10-03] MEDS: NICOTINE 14 MG/24 HR PATCH TD SCH (10:33)
[2021-10-03] MEDS: DOCUSATE SODIUM 100 MG CAP PO SCH (10:34)
[2021-10-03] MEDS: CLOPIDOGREL 75 MG TAB PO SCH (10:34)
[2021-10-03] MEDS: HEPARIN 5,000 UNIT/1 ML VIAL SUB-Q SCH (10:49)
--- NOTE | 2021-10-03 12:52 | Progress Note ---
Assessment and Plan - Patient Problems (1) STEMI (ST elevation myocardial infarction) Current Visit: No Status: Inactive Plan to address problem: Status postacute anterior wall ST elevation myocardial infarction, treated with primary angioplasty and stenting of the LAD. Echocardiogram shows left ventricular ejection fraction 35%, with evidence of anterior infarct. Patient is stable for cardiac discharge on optimal medical therapy as previously outlined. Subjective Date of service: 10/03/[address] Principal diagnosis: [address] elevation myocardial infarction Interval history: Patient is comfortable, sitting up in his chair, no cardiac complaints, no chest pain, no shortness of breath. Looks and feels well. Objective Vital Signs Temp Pulse Pulse Resp BP Pulse Ox 10/03/21 08:32 100 10/03/21 07:17 98.7 F 90 18 85/57 97 10/03/21 05:59 98.6 F 92 H 18 102/61 98 10/03/21 03:08 99 H 18 99 10/03/21 01:08 97.7 F 82 20 92/66 99 10/02/21 21:01 96 10/02/21 20:00 97.5 F L 99 10/02/21 16:53 96 10/02/21 16:00 99 - Physical Examination General: No Apparent Distress HEENT: Positive: PERRL Neck: Positive: neck supple Cardiac: Positive: Reg Rate and Rhythm Lungs: Positive: Decreased Breath Sounds Neuro: Positive: Grossly Intact Abdomen: Positive: Soft Skin: Positive: Clear Extremities: Absent: edema - Labs and Meds CBC 10/03/21 Range/Units 04:21 WBC 9.8 (4.5-11.0) K/mm3 RBC 4.44 (3.65-5.03) M/mm3 Hgb 13.4 (11.8-15.2) gm/dl Hct 40.1 (35.5-45.6) % Plt Count 219 (140-440) K/mm3 Comprehensive Metabolic Panel 10/03/21 Range/Units 04:21 Sodium 131 L (137-145) mmol/L Potassium 3.5 L (3.6-5.0) mmol/L Chloride 96.3 L (98-107) mmol/L Carbon Dioxide 23 (22-30) mmol/L BUN 12 (9-20) mg/dL Creatinine 0.6 L (0.8-1.3) mg/dL Glucose 257 H (75-100) mg/dL Calcium 8.5 (8.4-10.2) mg/dL
[2021-10-03 13:24] VITALS: BP 110/78
--- NOTE | 2021-10-03 17:09 | Event Note ---
Date: 10/03/21 lantus rx failed to transmit. Called in rx over [place] voicemail system. GENI Diggs aware and has notified patient.
== END 2021-10-03 17:15 | disposition home or self-care (01) | DRG 247 ==
LOC: ED 19:32 → CC1 21:21 → 4A 10-03 00:26
PROVIDERS: ADMIT Hospitalist; ATTEND Internal Medicine
PROC: 027135Z Dilation of Coronary Artery, Two Arteries with Two Drug-eluting Intraluminal Devices, Percutaneous Approach (ICD-10-PCS; principal; 2021-10-01)
PROC: 4A023N7 Measurement of Cardiac Sampling and Pressure, Left Heart, Percutaneous Approach (ICD-10-PCS; 2021-10-01)
PROC: B2111ZZ Fluoroscopy of Multiple Coronary Arteries using Low Osmolar Contrast (ICD-10-PCS; 2021-10-01)
DX: I21.3 ST elevation (STEMI) myocardial infarction of unspecified site (principal); I10 Essential (primary) hypertension; D72.829 Elevated white blood cell count, unspecified
CPT/HCPCS: 36415; 71045; 80048; 80053; 80061; 82962; 83036; 83880; 84484; 85025; 85027; 92941; 93005; 93306; 93454; G0378; J1815; J3490; Q9967; C1725; C1769; C1874; C1887; C1894; C8929; C9606; J1170; J1644; J2250; J2270; J2405; J3010; J7030